=== PATIENT | male | born 1990 | race Caucasian/White ===

== ENCOUNTER → 2019-03-02 | Outpatient (CLI) | payer OTHER ==
[~2019-03-02] MED LIST: Bactrim Ds Tab1 EACH PO; CEPH500 PO; CRUTCH4 XX; HYDACE5 PO; IBUP800 PO; PENVK250 PO; PENVK500 PO; TRAM50 PO
== END | disposition home or self-care (01) ==
LOC: LAB SHORT 10:10 → LAB 10:10 → LAB FUT 02-24 13:55 → EDSTATUS 02-24 13:55
DX: R05 Cough (principal); R59.1 Generalized enlarged lymph nodes
CPT/HCPCS: 87015; 87116; 87206

== ENCOUNTER → 2022-06-29 | Outpatient (CLI) | payer OTHER | END | disposition home or self-care (01) | LOC: LAB SHORT 13:19 → LAB 13:19 | DX: L03.313 Cellulitis of chest wall (principal) | CPT/HCPCS: 87070; 87075; 87077; 87186; 87205 ==

== ENCOUNTER 2023-05-07 15:54 | Emergency (ER) | payer OTHER ==
[~2023-05-07] VITALS: Ht 167.6 cm; Wt 131.5 kg
[2023-05-07 16:04] VITALS: BP 152/96
[2023-05-07] MEDS ORDERED: Cephalexin500 M1 PO (16:13)
[2023-05-07] MEDS ORDERED: SULTRIDS PO (16:13)
== END 2023-05-07 16:15 | disposition home or self-care (01) ==
LOC: ER 15:54
DX: L03.312 Cellulitis of back [any part except buttock and flank] (principal)
CPT/HCPCS: 99283